=== PATIENT | female | born 1980 | race Two or more races ===

== ENCOUNTER → 2020-09-04 | Outpatient (CLI) | payer OTHER | END | disposition home or self-care (01) | LOC: OFIC 805 12:45 | PROVIDERS: ATTEND Otolaryngology | DX: R22.1 Localized swelling, mass and lump, neck (principal) ==

== ENCOUNTER 2020-09-27 15:10 | Outpatient (CLI) | payer OTHER | END 2020-09-27 17:00 | disposition home or self-care (01) | LOC: OFIC 805 15:10 | PROVIDERS: ATTEND Otolaryngology | DX: R59.0 Localized enlarged lymph nodes (principal) ==

== ENCOUNTER 2020-10-11 12:13 | Outpatient (CLI) | payer OTHER | END 2020-10-11 17:46 | disposition home or self-care (01) | LOC: OFIC 805 12:13 | PROVIDERS: ATTEND Otolaryngology | DX: R59.0 Localized enlarged lymph nodes (principal) ==